=== PATIENT | female | born 1995 | race Hispanic/Latino ===

== ENCOUNTER 2020-04-04 08:25 | Emergency (ER) | payer OTHER, SELFPAY ==
--- NOTE | 2020-04-04 09:13 | RAD ---
EXAM: Chest one view: HISTORY: Chest pain COMPARISON: None FINDINGS: Heart size: Within normal limits. Lungs: Clear of acute process. No evidence for confluent pneumonia, pleural effusion, acute edema, or pneumothorax, or other signifi cant acute process. IMPRESSION: No significant acute intrathoracic disease.
== END 2020-04-04 09:22 | disposition home or self-care (01) ==
LOC: MADERS 08:25
DX: F43.0 Acute stress reaction (principal); F41.9 Anxiety disorder, unspecified; Z20.828 Contact with and (suspected) exposure to other viral communicable diseases
CPT/HCPCS: 71045; 93005